=== PATIENT | female | born 1990 | race Caucasian/White ===

== ENCOUNTER 2017-08-02 12:33 | Emergency (ER) | payer OTHER ==
[2017-08-02] MEDS: ACETAMINOPHEN 500 MG TAB PO (14:48)
== END 2017-08-02 15:24 | disposition home or self-care (01) ==
LOC: FTE 15:24
DX: R51 Headache (principal)
CPT/HCPCS: 99283; Z7502

== ENCOUNTER 2018-04-19 09:33 | Emergency (ER) | payer OTHER | END 2018-04-19 11:37 | disposition home or self-care (01) | LOC: FTE 09:33 | DX: H92.02 Otalgia, left ear (principal); R59.1 Generalized enlarged lymph nodes | CPT/HCPCS: 99283; Z7502 ==

== ENCOUNTER 2018-09-30 08:21 | Emergency (ER) | payer OTHER ==
[2018-09-30 10:11] LABS: URINE BLOOD (Dip) POC 3+ (NEGATIVE); URINE GLUCOSE (Dip) POC Negative (NEGATIVE); URINE KETONES (Dip) POC Negative (NEGATIVE); URINE LEUKOCYTE EST (Dip) POC 1+ (NEGATIVE); URINE NITRITE (Dip) POC Negative (NEGATIVE); URINE TOTAL PROTEIN POC 2+ (NEGATIVE)
== END 2018-09-30 11:16 | disposition home or self-care (01) ==
LOC: FTE 08:21
DX: N30.00 Acute cystitis without hematuria (principal); R25.2 Cramp and spasm
CPT/HCPCS: 81003; 81025; 93971; 99284-25

== ENCOUNTER 2018-11-19 03:03 | Emergency (ER) | payer OTHER ==
[2018-11-19] MEDS: IBUPROFEN 600 MG TAB PO (03:32)
== END 2018-11-19 05:35 | disposition home or self-care (01) ==
LOC: FTE 03:03
DX: M54.9 Dorsalgia, unspecified (principal); M25.551 Pain in right hip; R10.2 Pelvic and perineal pain
CPT/HCPCS: 72100; 72170; 72220; 73502; 73510; 81025; 99284-25